=== PATIENT | female | born 1990 | race Two or more races ===

== ENCOUNTER 2020-03-30 09:00 | Outpatient (CLI) | payer OTHER | END 2020-03-31 15:24 | disposition home or self-care (01) | LOC: PPH VACUNA 09:00 | DX: Z23 Encounter for immunization (principal) ==

== ENCOUNTER 2020-10-07 09:35 | Outpatient (CLI) | payer OTHER | END 2020-10-07 10:11 | disposition home or self-care (01) | LOC: NST 09:35 | PROVIDERS: ATTEND Obstetrics & Gynecology Maternal & Fetal Medicine | DX: Z34.83 Encounter for supervision of other normal pregnancy, third trimester (principal) ==

== ENCOUNTER 2020-11-19 12:37 | Outpatient (CLI) | payer OTHER | END 2020-11-19 13:12 | disposition home or self-care (01) | LOC: NST 12:37 | PROVIDERS: ATTEND Obstetrics & Gynecology Maternal & Fetal Medicine | DX: Z34.83 Encounter for supervision of other normal pregnancy, third trimester (principal) ==

== ENCOUNTER 2020-11-23 16:30 | Outpatient (CLI) | payer OTHER | END 2020-11-23 16:50 | disposition home or self-care (01) | LOC: NST 16:30 | PROVIDERS: ATTEND Obstetrics & Gynecology Maternal & Fetal Medicine | DX: Z34.83 Encounter for supervision of other normal pregnancy, third trimester (principal) ==